=== PATIENT | female | born 1985 | race Caucasian/White ===

== ENCOUNTER 2018-03-06 02:01 | Emergency (ER) | payer MEDICAID, OTHER ==
[~2018-03-06] VITALS: Ht 165.1 cm; Wt 66.0 kg
[2018-03-06] MEDS ORDERED: VISCOUS LIDOCAINE 2% 15 ML UDC PO STA (03:06)
[2018-03-06] MEDS ORDERED: ACETAMINOPHEN 325MG TABLET PO STA (03:06)
[2018-03-06] MEDS ORDERED: MAGNESIUM/ALUMINUM HYDROXIDE/SIMETHICONE 30ML UDC PO STA (03:06)
[2018-03-06] MEDS ORDERED: FAMOTIDINE 20MG TABLET PO ONE (03:15)
[2018-03-06 03:27] LABS: CLARITY URINE CLEAR (CLEAR); COLOR URINE DARK YELLOW (YELLOW); KETONES URINE NEGATIVE (NEGATIVE); LEUKOCYTE ESTERASE URINE NEGATIVE (NEGATIVE); NITRITE URINE NEGATIVE (NEGATIVE); OCCULT BLOOD URINE NEGATIVE (NEGATIVE); PH URINE 5.5 (4.5-8.0); PROTEIN URINE NEGATIVE (NEGATIVE); SPECIFIC GRAVITY URINE 1.026 (1.005-1.030)
[2018-03-06 03:42] LABS: BASOPHILS % 0.3 % (0.0-2.0); EOSINOPHILS % 0.3 % (0.0-5.0); HEMATOCRIT. 39.5 % (36.0-48.0); HEMOGLOBIN. 13.9 g/dL (12.0-16.0); LYMPHOCYTES % 10.6 % (20.0-50.0); MEAN CORPUSCULAR HEMOGLOBIN 32.4 pg (28.0-32.0); MEAN CORPUSCULAR VOLUME 92.1 fL (81.0-99.0); MEAN PLATELET VOLUME 7.6 fl (7.4-10.4); MONOCYTES % 4.4 % (2.0-8.0); NEUTROPHILS % 84.4 % (40.0-76.0); PLATELET 313 x1000/uL (130-400); RED BLOOD CELL COUNT 4.29 mill/uL (4.2-5.4); RED CELL DISTRIBUTION WIDTH 12.6 % (11.6-14.6)
[2018-03-06 03:46] LABS: CHLORIDE 105 mEq/L (98-107)
[2018-03-06 03:47] LABS: PROTHROMBIN TIME 10.7 sec (9.4-11.6)
[2018-03-06 03:54] LABS: *AMPHETAMINES SCREEN URINE NEGATIVE (NEGATIVE); *BARBITURATES SCREEN URINE NEGATIVE (NEGATIVE); *BENZODIAZEPINES SCREEN URINE NEGATIVE (NEGATIVE); *COCAINE SCREEN URINE NEGATIVE (NEGATIVE)
[2018-03-06 03:55] LABS: CANNABINOID URINE SCREEN NEGATIVE (NEGATIVE); METHADONE URINE SCREEN NEGATIVE (NEGATIVE); OPIATES URINE SCREEN NEGATIVE (NEGATIVE); PHENCYCLIDINE URINE SCREEN NEGATIVE (NEGATIVE)
[2018-03-06 10:11] VITALS: BP 108/68
== END 2018-03-06 10:13 | disposition home or self-care (01) ==
LOC: EDBD 02:01 → ER 02:23
DX: K81.9 Cholecystitis, unspecified (principal); Z90.49 Acquired absence of other specified parts of digestive tract
CPT/HCPCS: 36415; 76705; 80053; 80305; 81003; 81025; 83690; 85025; 85610; 99285

== ENCOUNTER 2018-12-28 05:39 | Emergency (ER) | payer OTHER | END 2018-12-28 06:00 | disposition left against medical advice (07) | LOC: ER 05:39 | DX: Z53.21 Procedure and treatment not carried out due to patient leaving prior to being seen by health care provider (principal) ==